=== PATIENT | female | born 1990 | race Caucasian/White ===

== ENCOUNTER 2016-10-28 14:29 | Emergency (ER) | payer MEDICAID ==
[2016-10-28] MEDS ORDERED: Cyclobenzaprine 10 MG Tab PO ONE (15:18)
[2016-10-28] MEDS ORDERED: Ibuprofen 600 MG Tab PO ONE (15:19)
--- NOTE | 2016-10-28 15:20 | EDM.PDOC ---
ED UPPER BACK/NECK PAIN/INJURY - General Chief Complaint: Back Pain or Injury Stated Complaint: BACK PAIN Time Seen by Provider: 10/28/16 15:18 Source of Information: Reports: Patient - History of Present Illness INITIAL COMMENTS - FREE TEXT/NARRATIVE: Patient here today with back pain that started today after lifting her 18month old child. She states she heard a "pop" and had immediate left lower back pain. Denies loss of bowel/bladder function. Some pain down the back of her left leg. - Related Data Allergies/ADRs: Allergies Allergy/AdvReac Type Severity Reaction Status Date / Time No Known Allergies Allergy Verified 10/28/16 14:48 Home Meds: Home Meds Albuterol [IJD: Albuterol HFA] 1 inh INH ASDIRECTED PRN 10/28/16 [History] Cyclobenzaprine [Flexeril] 5 mg PO BID PRN #30 tablet 10/28/16 [Rx] Naproxen [Naprosyn] 500 mg PO BID #30 tablet 10/28/16 [Rx] Past Medical History Respiratory History: Reports: Asthma - Past Surgical History HEENT Surgical History: Reports: Oral surgery Social & Family History - Tobacco Use Smoking Status *Q: Never Smoker Second Hand Smoke Exposure: Yes - Caffeine Use Caffeine Use: Reports: Soda - Recreational Drug Use Recreational Drug Use: No Drug Use in Last 12 Months: No Recreational Drug Type: Reports: Cocaine, Heroin, Methamphetamine Recreational Drug Last Use: quit age 16 ED ROS GENERAL - Review of Systems Review Of Systems: See Below Constitutional: Reports: no symptoms Respiratory: Reports: No Symptoms Cardiovascular: Reports: No symptoms Musculoskeletal: Reports: back pain, leg pain Skin: Reports: no symptoms Neurological: Reports: Numbness, Tingling (left leg) ED EXAM, UPPER BACK/NECK PAIN - Physical Exam Exam: See Below Exam Limited By: No limitations General Appearance: alert, WD/WN, mild distress Cardiovascular/Respiratory: regular rate, rhythm, normal breath sounds Rectal (Female) Exam: Tenderness (Tenderness to left sciatic notch and SIJ. Bilateral lumbar paraspinous muscle tenderness. FROM, significantly increased pain with lumbar extension. SLR radiates to the back on both sides at 30 degrees. ) Neurologic: no motor/sensory deficits, oriented x 3 DTR: 2+: patella (R), patella (L) Psychiatric: normal affect Skin Exam: Normal color, Warm/dry Course - Vital Signs Last Recorded V/S: Last Vital Signs Temp 97.6 F 10/28/16 14:44 Pulse 93 10/28/16 14:44 Resp 16 10/28/16 14:44 BP 121/72 10/28/16 14:44 Pulse Ox 100 10/28/16 14:44 - Orders/Labs/Meds Orders: Active Orders 24 hr Category Date Time Status Lumbar Spine 2 or 3V [CR] Stat Exams 10/28/16 15:18 Taken Meds: Medications Discontinued Medications Generic Name Dose Route Start Last Admin Trade Name Freq PRN Reason Stop Dose Admin Cyclobenzaprine HCl 5 mg 10/28/16 15:18 10/28/16 15:31 Flexeril PO 10/28/16 15:19 5 mg ONETIME ONE Administration Ibuprofen 600 mg 10/28/16 15:19 10/28/16 15:30 Motrin PO 10/28/16 15:20 600 mg ONETIME ONE Administration - Re-Assessments/Exams Free Text/Narrative Re-Assessment/Exam: Acute lumbar back pain. Lspine xray demonstrated no acute abnormality. Patient was given 5mg cyclobenzaprine and 600mg ibuprofen with improvement in pain. I do suspect majority of her pain is due to muscle spasms, though disc herniation could be possible as she does not some LLE pain. Will discharge her home with naproxen BID and PRN cyclobenzaprine and she is to follow-up with myself in the clinic next week. 10/28/16 16:07 Departure - Departure Time of Disposition: 16:09 Disposition: Home, Self-Care 01 Clinical Impression: Lower back pain Qualifiers: Chronicity: acute Back pain laterality: bilateral Sciatica presence: with sciatica Sciatica laterality: sciatica of left side Qualified Code(s): M54.42 - Lumbago with sciatica, left side Prescriptions: Cyclobenzaprine [Flexeril] 5 mg PO BID PRN #30 tablet PRN Reason: Muscle Spasm Naproxen [Naprosyn] 500 mg PO BID #30 tablet Instructions: Muscle Strain, [id number], Back Pain, Adult, [id number] Referrals: PCP,None [Primary Care Provider] - Forms: ED Department Discharge Additional Instructions: Rest, activity as tolerated. Ice 15 minutes ever 2-3 hours as needed. Naproxen (anti-inflammatory) 2x daily for 1 week, then 2x daily as needed. Cyclobenzaprine (muscle relaxant) up to 2x daily if needed. Follow-up with myself in the clinic next week, call [phone] to schedule. - My Orders Last 24 Hours: My Active Orders 10/28/16 15:18 Lumbar Spine 2 or 3V [CR] Stat - Assessment/Plan Last 24 Hours: My Active Orders 10/28/16 15:18 Lumbar Spine 2 or 3V [CR] Stat
[2016-10-28 16:27] VITALS: BP 114/69
--- NOTE | 2016-10-29 09:26 | CR ---
Lumbar spine: AP, lateral and coned-down lateral views centered to the lumbosacral junction were obtained. Vertebral body heights and disc spaces are preserved. Pedicles as well as transverse and spinous processes are intact. No subluxation or fracture is seen. Sacroiliac joints are within normal limits. Impression: 1. No abnormality is seen on three-view lumbar spine study. Diagnostic code #1
== END 2016-10-28 16:21 | disposition home or self-care (01) ==
LOC: JD.ED 14:29
DX: M54.42 Lumbago with sciatica, left side (principal); Z79.899 Other long term (current) drug therapy; Z98.890 Other specified postprocedural states
CPT/HCPCS: 72100; 99283; A9270

== ENCOUNTER 2017-01-12 23:31 | Emergency (ER) | payer MEDICAID ==
[2017-01-12 23:40] VITALS: BP 112/77
--- NOTE | 2017-01-13 00:46 | EDM.PDOC ---
ED HPI GENERAL MEDICAL PROBLEM - General Chief Complaint: Upper Extremity Injury/Pain Stated Complaint: [facility] Time Seen by Provider: 01/13/17 00:45 - History of Present Illness INITIAL COMMENTS - FREE TEXT/NARRATIVE: 26 year old female presents to emergency room with left shoulder pain. This is been going on for a couple weeks now progressively getting worse. The chiropractor informed her that she had a slipped rib and that perhaps her shoulder has popped out of joint. Earlier today the patient was pulling on a bag of ice and this aggravated it. The patient denies any numbness or tingling down her arm. She has intermittent rest bone discomfort if she moves her shoulder wrong. She has tried a leftover pain pills and muscle relaxant about 4 hours ago and this did not seem to help much. Left Shoulder Pain Score (Numeric/FACES): 7 - Related Data Allergies Allergy/AdvReac Type Severity Reaction Status Date / Time No Known Allergies Allergy Verified 01/12/17 23:41 Home Meds: Home Meds Albuterol [IJD: Albuterol HFA] 1 inh INH ASDIRECTED PRN 10/28/16 [History] Cyclobenzaprine [Flexeril] 5 mg PO BID PRN #30 tablet 10/28/16 [Rx] Naproxen [Naprosyn] 500 mg PO BID #30 tablet 10/28/16 [Rx] Naproxen [Naprosyn] 500 mg PO Q12HR #30 tablet 01/13/17 [Rx] Past Medical History Respiratory History: Reports: Asthma Musculoskeletal History: Reports: Other (See Below) Other Musculoskeletal History: "slipped disk" Neurological History: Reports: Concussion - Past Surgical History HEENT Surgical History: Reports: Oral Surgery Social & Family History - Family History Family Medical History: Noncontributory - Tobacco Use Smoking Status *Q: Never Smoker Second Hand Smoke Exposure: Yes - Caffeine Use Caffeine Use: Reports: Soda - Recreational Drug Use Recreational Drug Use: No Drug Use in Last 12 Months: No Recreational Drug Type: Reports: Cocaine, Heroin, Methamphetamine Recreational Drug Last Use: quit age 16 Review of Systems - Review of Systems Review Of Systems: See Below Constitutional: Reports: No Symptoms Respiratory: Reports: No Symptoms Cardiovascular: Reports: No Symptoms GI/Abdominal: Reports: No Symptoms Genitourinary: Reports: No Symptoms, Other (She denies any chance of being at this point) ED EXAM, GENERAL - Physical Exam Exam: See Below Exam Limited By: No Limitations General Appearance: Alert, No Apparent Distress Respiratory/Chest: No Respiratory Distress, Lungs Clear, Normal Breath Sounds Cardiovascular: Regular Rate, Rhythm, No Edema, No Murmur Extremities: Other (Patient has fairly good range of motion of her left shoulder except when she's reaching up and she has some tightness. Palpation between the neck and the shoulder reveals some tenderness and some tight muscles. Neurovascular status of the arm is normal she has no tenderness in the forearm hand or wrist no significant discomfort over the humerus she has tenderness to palpation around the shoulder. The clavicle is not tender. She does not have any appreciable chest wall discomfort.) Course - Vital Signs Last Recorded V/S: Last Vital Signs Temp 37.6 C 01/12/17 23:35 Pulse 91 01/12/17 23:35 Resp 16 01/12/17 23:35 BP 112/77 01/12/17 23:35 Pulse Ox 100 01/12/17 23:35 - Orders/Labs/Meds Orders: Active Orders 24 hr Category Date Time Status Shoulder Comp Lt [CR] Stat Exams 01/13/17 01:01 Taken - Re-Assessments/Exams Free Text/Narrative Re-Assessment/Exam: 01/13/17 02:45 X-ray of her left shoulder is negative for acute changes. Departure - Departure Time of Disposition: 02:45 Disposition: Home, Self-Care 01 Clinical Impression: Left shoulder pain - Discharge Information Prescriptions: Naproxen [Naprosyn] 500 mg PO Q12HR #30 tablet Forms: ED Department Discharge Additional Instructions: Return to the emergency room with any questions or problems. Follow up with her regular provider on Sunday or for a recheck - My Orders Last 24 Hours: My Active Orders 01/13/17 01:01 Shoulder Comp Lt [CR] Stat - Assessment/Plan Last 24 Hours: My Active Orders 01/13/17 01:01 Shoulder Comp Lt [CR] Stat
--- NOTE | 2017-01-15 14:38 | CR ---
Left shoulder: Three views of the left shoulder were obtained. Comparison: No previous study. Glenohumeral joint and acromioclavicular joint appear unremarkable. No fracture or other bony abnormality is seen. Impression: 1. No abnormality is identified on three-view left shoulder study. Diagnostic code #1
== END 2017-01-13 03:03 | disposition home or self-care (01) ==
LOC: JD.ED 23:31
DX: M25.512 Pain in left shoulder (principal); J45.909 Unspecified asthma, uncomplicated; Z98.890 Other specified postprocedural states
CPT/HCPCS: 73030-26-LT; 73030-LT; 99283; 99284

== ENCOUNTER 2017-04-08 12:23 | Emergency (ER) | payer MEDICAID ==
[2017-04-08] MEDS ORDERED: Alum Hydrox/Mag Hydrox/Simeth 30 ML, Lidocaine 2% 15 ML PO ONE ×2 (12:54)
--- NOTE | 2017-04-08 13:00 | EDM.PDOC ---
ED HPI GENERAL MEDICAL PROBLEM - General Chief Complaint: Abdominal Pain Stated Complaint: ABDOMINAL PAIN Time Seen by Provider: 04/08/17 12:38 - History of Present Illness INITIAL COMMENTS - FREE TEXT/NARRATIVE: 26-year-old female comes emergency room with abdominal pain. This abdominal pain started yesterday as described midepigastric made worse by eating or drinking. Patient did not have much of an appetite yesterday was having this discomfort she retried nurse down crackers and this actually made it worse as well as trying to sip fluids. The pain is described as mostly epigastric. She has not had any vomiting has had some nausea with this. Patient denies any fevers or chills no diarrhea no constipation no black or tarry stools. The patient is on control pills but she thinks maybe she missed a dose. lower epigastric Pain Score (Numeric/FACES): 1 - Related Data Allergies Allergy/AdvReac Type Severity Reaction Status Date / Time No Known Allergies Allergy Verified 04/08/17 12:41 Home Meds: Home Meds Albuterol [IJD: Albuterol HFA] 1 inh INH ASDIRECTED PRN 10/28/16 [History] Control Pills 1 tab PO ASDIRECTED 04/08/17 [History] Lansoprazole [Prevacid] 30 mg PO Q24H #30 capsule. 04/08/17 [Rx] Sucralfate [Carafate] 1 gm PO QIDACANDBED #28 tablet 04/08/17 [Rx] Past Medical History - Past Health History Medical/Surgical History: Denies Medical/Surgical History Respiratory History: Reports: Asthma Musculoskeletal History: Reports: Back Pain, Chronic, Other (See Below) Other Musculoskeletal History: "slipped disk" Neurological History: Reports: Concussion - Past Surgical History HEENT Surgical History: Reports: Oral Surgery Social & Family History - Family History Family Medical History: Noncontributory - Tobacco Use Smoking Status *Q: Never Smoker Second Hand Smoke Exposure: Yes - Caffeine Use Caffeine Use: Reports: Energy Drinks - Recreational Drug Use Recreational Drug Use: No Drug Use in Last 12 Months: No Recreational Drug Type: Reports: Cocaine, Heroin, Methamphetamine Recreational Drug Last Use: quit age 16 ED ROS GENERAL - Review of Systems Review Of Systems: See Below Constitutional: Reports: No Symptoms HEENT: Reports: No Symptoms Respiratory: Reports: No Symptoms Cardiovascular: Reports: No Symptoms GI/Abdominal: Reports: Abdominal Pain, Decreased Appetite, Nausea. Denies: Black Stool, Bloody Stool, Constipation, Diarrhea, Vomiting : Reports: No Symptoms Neurological: Reports: No Symptoms ED EXAM, GI/ABD - Physical Exam Exam: See Below General Appearance: Alert, No Apparent Distress Head: Atraumatic, Normocephalic Neck: Normal Inspection, Supple, Non-Tender, Full Range of Motion. No: Lymphadenopathy (L), Lymphadenopathy (R) Respiratory/Chest: No Respiratory Distress, Lungs Clear, Normal Breath Sounds Cardiovascular: Regular Rate, Rhythm, No Edema, No Murmur GI/Abdominal Exam: Normal Bowel Sounds, Soft, Other (Patient has significant epigastric and left upper quadrant discomfort with palpation vague discomfort noted in the suprapubic area no rigidity rebound or guarding noted) Back Exam: Normal Inspection. No: CVA Tenderness (L), CVA Tenderness (R) Extremities: Normal Inspection, No Pedal Edema Neurological: Alert, Oriented, Normal Cognition Course - Vital Signs Last Recorded V/S: Last Vital Signs Temp 36.8 C 04/08/17 12:37 Pulse 74 04/08/17 12:37 Resp 18 04/08/17 12:37 BP 107/74 04/08/17 12:37 Pulse Ox 100 04/08/17 12:37 - Orders/Labs/Meds Labs: Laboratory Tests 04/08/17 04/08/17 04/08/17 Range/Units 13:20 13:20 13:30 WBC 5.50 (3.98-10.04) K/mm3 RBC 4.58 (3.98-5.22) M/mm3 Hgb 13.2 (11.2-15.7) gm/L Hct 39.2 (34.1-44.9) % MCV 85.6 (79.4-94.8) fl MCH 28.8 (25.6-32.2) pg MCHC 33.7 (32.2-35.5) g/dl RDW Std Deviation 39.4 (36.4-46.3) fL Plt Count 176 L (182-369) K/mm3 MPV 11.8 (9.4-12.3) fl Neutrophils % (Manual) 57 (40-60) % Band Neutrophils % 0 (0-10) % Lymphocytes % (Manual) 40 (20-40) % Atypical Lymphs % 0 % Monocytes % (Manual) 2 (2-10) % Eosinophils % (Manual) 1 (0.7-5.8) % Basophils % (Manual) 0 L (0.1-1.2) Platelet Estimate Adequate RBC Morph Comment Normal Sodium (136-145) mEq/L Potassium (3.5-5.1) mEq/L Chloride (98-107) mEq/L Carbon Dioxide (21-32) mEq/L Anion Gap (5-15) BUN (7-18) mg/dL Creatinine (0.55-1.02) mg/dL Est Cr Clr Drug Dosing Estimated GFR (MDRD) (>60) mL/min BUN/Creatinine Ratio (14-18) Glucose (74-106) mg/dL Calcium (8.5-10.1) mg/dL Total Bilirubin (0.2-1.0) mg/dL AST (15-37) U/L ALT (14-59) U/L Alkaline Phosphatase (46-116) U/L Total Protein (6.4-8.2) g/dl Albumin (3.4-5.0) g/dl Globulin gm/dL Albumin/Globulin Ratio (1-2) Lipase (73-393) U/L Urine Color Yellow (Yellow) Urine Appearance Clear (Clear) Urine pH 6.0 (5.0-8.0) Ur Specific [place] 1.020 (1.005-1.030) Urine Protein Trace H (Negative) Urine Glucose (UA) Negative (Negative) Urine Ketones Negative (Negative) Urine Occult Blood Negative (Negative) Urine Nitrite Negative (Negative) Urine Bilirubin Negative (Negative) Urine Urobilinogen 2.0 H (0.2-1.0) Ur Leukocyte Esterase 1+ H (Negative) Urine RBC Not seen (0-5) /hpf Urine WBC 5-10 H (0-5) /hpf Ur Epithelial Cells 0-5 (0-5) /hpf Urine Bacteria Few (FEW) /hpf Urine Mucus Many H (FEW) /hpf Urine HCG, Qual Negative (NEGATIVE) 04/08/17 Range/Units 13:30 WBC (3.98-10.04) K/mm3 RBC (3.98-5.22) M/mm3 Hgb (11.2-15.7) gm/L Hct (34.1-44.9) % MCV (79.4-94.8) fl MCH (25.6-32.2) pg MCHC (32.2-35.5) g/dl RDW Std Deviation (36.4-46.3) fL Plt Count (182-369) K/mm3 MPV (9.4-12.3) fl Neutrophils % (Manual) (40-60) % Band Neutrophils % (0-10) % Lymphocytes % (Manual) (20-40) % Atypical Lymphs % % Monocytes % (Manual) (2-10) % Eosinophils % (Manual) (0.7-5.8) % Basophils % (Manual) (0.1-1.2) Platelet Estimate RBC Morph Comment Sodium 141 (136-145) mEq/L Potassium 3.7 (3.5-5.1) mEq/L Chloride 106 (98-107) mEq/L Carbon Dioxide 26 (21-32) mEq/L Anion Gap 12.7 (5-15) BUN 8 (7-18) mg/dL Creatinine 0.8 (0.55-1.02) mg/dL Est Cr Clr Drug Dosing TNP Estimated GFR (MDRD) > 60 (>60) mL/min BUN/Creatinine Ratio 10.0 L (14-18) Glucose 93 (74-106) mg/dL Calcium 8.8 (8.5-10.1) mg/dL Total Bilirubin 0.2 (0.2-1.0) mg/dL AST 9 L (15-37) U/L ALT 16 (14-59) U/L Alkaline Phosphatase 49 (46-116) U/L Total Protein 7.2 (6.4-8.2) g/dl Albumin 3.7 (3.4-5.0) g/dl Globulin 3.5 gm/dL Albumin/Globulin Ratio 1.1 (1-2) Lipase 105 (73-393) U/L Urine Color (Yellow) Urine Appearance (Clear) Urine pH (5.0-8.0) Ur Specific [place] (1.005-1.030) Urine Protein (Negative) Urine Glucose (UA) (Negative) Urine Ketones (Negative) Urine Occult Blood (Negative) Urine Nitrite (Negative) Urine Bilirubin (Negative) Urine Urobilinogen (0.2-1.0) Ur Leukocyte Esterase (Negative) Urine RBC (0-5) /hpf Urine WBC (0-5) /hpf Ur Epithelial Cells (0-5) /hpf Urine Bacteria (FEW) /hpf Urine Mucus (FEW) /hpf Urine HCG, Qual (NEGATIVE) Meds: Medications Discontinued Medications Generic Name Dose Route Start Last Admin Trade Name Freq PRN Reason Stop Dose Admin Al Hydroxide/Mg Hydroxide 30 0 ml 04/08/17 12:54 04/08/17 13:33 ml/ Lidocaine HCl 15 ml PO 04/08/17 12:55 45 ml ONETIME ONE Administration Sucralfate 1 gm 04/08/17 14:08 Carafate PO 04/08/17 14:09 ONETIME ONE - Re-Assessments/Exams Free Text/Narrative Re-Assessment/Exam: 04/08/17 14:09 Patient received a GI cocktail became pain-free labs are nondiagnostic urinalysis looks contaminated however may suggest an early UTI the patient is not and absolutely asymptomatic will not do anything with this at this point. Patient will .be started on a week's worth of Carafate will start PPI therapy have her follow-up in the clinic later this week Departure - Departure Time of Disposition: 14:11 Disposition: Home, Self-Care 01 Clinical Impression: Dyspepsia - Discharge Information Prescriptions: Lansoprazole [Prevacid] 30 mg PO Q24H #30 capsule. Sucralfate [Carafate] 1 gm PO QIDACANDBED #28 tablet Referrals: PCP,None [Primary Care Provider] - Forms: ED Department Discharge Additional Instructions: Return to the emergency room with any questions problems worsening symptoms. You have been started on 2 medications first one is Prevacid he take this once a day take it 60 minutes before your morning meal. The second medication is Carafate take these tablets before breakfast lunch and supper and at bedtime. Take your other medications at least an hour before or 2 hours after taking this , you'll take this medication for a week. Follow-up in the Hospital clinic later this week for recheck. [phone]
[2017-04-08] MEDS ORDERED: Sucralfate Suspension 1 GM/10 ML Cup PO ONE (14:08)
[2017-04-08 19:29] VITALS: BP 108/77
== END 2017-04-08 14:37 | disposition home or self-care (01) ==
LOC: JD.ED 12:23
DX: R10.13 Epigastric pain (principal); J45.909 Unspecified asthma, uncomplicated
CPT/HCPCS: 36415; 80053; 81001; 81025; 83690; 85025; 99284; A9270; 99283

== ENCOUNTER 2017-04-10 03:19 | Emergency (ER) | payer MEDICAID ==
[2017-04-10 03:33] VITALS: BP 121/82
--- NOTE | 2017-04-10 03:48 | EDM.PDOC ---
ED HPI GENERAL MEDICAL PROBLEM - General Chief Complaint: Back Pain or Injury Stated Complaint: BACK/CHEST/RIB/PAIN Time Seen by Provider: 04/10/17 03:41 - History of Present Illness INITIAL COMMENTS - FREE TEXT/NARRATIVE: 26-year-old female returns the emergency room with right upper quadrant and flank discomfort. Patient was recently seen here thought to have dyspepsia she is taking her PPI and Carafate the pain she is having now is different and more to the right side. The patient was doing well until she returned to work this evening around 11:00 she developed some discomfort and nausea and vomiting. She works in the [employer] industry. Patient denies any fevers or chills at the one episode of vomiting. Right Chest Pain Score (Numeric/FACES): 8 - Related Data Allergies Allergy/AdvReac Type Severity Reaction Status Date / Time No Known Allergies Allergy Verified 04/10/17 03:31 Home Meds: Home Meds Albuterol [IJD: Albuterol HFA] 1 inh INH ASDIRECTED PRN 10/28/16 [History] Control Pills 1 tab PO ASDIRECTED 04/08/17 [History] Lansoprazole [Prevacid] 30 mg PO Q24H #30 capsule.dr 04/08/17 [Rx] Sucralfate [Carafate] 1 gm PO QIDACANDBED #28 tablet 04/08/17 [Rx] Hydrocodone/Acetaminophen [[place] 5-325 Tablet] 1 each PO Q6H PRN #10 tablet 07/15 [Rx] Ondansetron [Zofran ODT] 4 mg PO Q6H PRN #10 tab.dis 04/10/17 [Rx] Past Medical History - Past Health History Medical/Surgical History: Denies Medical/Surgical History HEENT History: Reports: Impaired Vision Other HEENT History: Wears glasses Respiratory History: Reports: Asthma Gastrointestinal History: Reports: Other (See Below) Other Gastrointestinal History: Dyspepsia [employer]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 [employer] History: Reports: Musculoskeletal History: Reports: Back Pain, Chronic, Other (See Below) Other Musculoskeletal History: "slipped disk" Neurological History: Reports: Concussion - Past Surgical History HEENT Surgical History: Reports: Oral Surgery Social & Family History - Family History Family Medical History: Noncontributory - Tobacco Use Smoking Status *Q: Never Smoker Second Hand Smoke Exposure: Yes - Caffeine Use Caffeine Use: Reports: Energy Drinks - Recreational Drug Use Recreational Drug Use: No Drug Use in Last 12 Months: No Recreational Drug Type: Reports: Cocaine, Heroin, Methamphetamine Recreational Drug Last Use: quit age 16 ED ROS GENERAL - Review of Systems Review Of Systems: See Below Constitutional: Reports: No Symptoms HEENT: Reports: No Symptoms, Vertigo Cardiovascular: Reports: No Symptoms GI/Abdominal: Reports: Abdominal Pain, Nausea, Vomiting. Denies: Constipation, Diarrhea : Reports: No Symptoms Neurological: Reports: No Symptoms ED EXAM, GENERAL - Physical Exam Exam: See Below Exam Limited By: No Limitations General Appearance: Alert, No Apparent Distress Head: Atraumatic, Normocephalic Neck: Normal Inspection, Supple, Non-Tender, Full Range of Motion Respiratory/Chest: No Respiratory Distress, Lungs Clear, Normal Breath Sounds Cardiovascular: Regular Rate, Rhythm, No Edema, No Murmur GI/Abdominal: Normal Bowel Sounds, Soft, Other (She has significant right upper quadrant discomfort with palpation no other palpatory discomfort noted. No rigidity or rebound or guarding noted) Back Exam: Normal Inspection. No: CVA Tenderness (L), CVA Tenderness (R) Neurological: Alert, Oriented, Normal Cognition Course - Vital Signs Last Recorded V/S: Last Vital Signs Temp 37.2 C 04/10/17 03:31 Pulse 74 04/10/17 03:31 Resp 22 H 04/10/17 03:31 BP 121/82 04/10/17 03:31 Pulse Ox 100 04/10/17 03:31 - Orders/Labs/Meds Labs: Laboratory Tests 04/10/17 04/10/17 04/10/17 Range/Units 04:02 04:05 04:05 WBC 8.14 (3.98-10.04) K/mm3 RBC 4.25 (3.98-5.22) M/mm3 Hgb 12.4 (11.2-15.7) gm/L Hct 36.2 (34.1-44.9) % MCV 85.2 (79.4-94.8) fl MCH 29.2 (25.6-32.2) pg MCHC 34.3 (32.2-35.5) g/dl RDW Std Deviation 38.8 (36.4-46.3) fL Plt Count 154 L (182-369) K/mm3 MPV 12.1 (9.4-12.3) fl Neutrophils % (Manual) 67 H (40-60) % Band Neutrophils % 0 (0-10) % Lymphocytes % (Manual) 26 (20-40) % Atypical Lymphs % 0 % Monocytes % (Manual) 6 (2-10) % Eosinophils % (Manual) 1 (0.7-5.8) % Basophils % (Manual) 0 L (0.1-1.2) Platelet Estimate Adequate RBC Morph Comment Normal Sodium 140 (136-145) mEq/L Potassium 3.4 L (3.5-5.1) mEq/L Chloride 106 (98-107) mEq/L Carbon Dioxide 26 (21-32) mEq/L Anion Gap 11.4 (5-15) BUN 11 (7-18) mg/dL Creatinine 0.9 (0.55-1.02) mg/dL Est Cr Clr Drug Dosing 85.84 mL/min Estimated GFR (MDRD) > 60 (>60) mL/min BUN/Creatinine Ratio 12.2 L (14-18) Glucose 103 (74-106) mg/dL Calcium 8.9 (8.5-10.1) mg/dL Total Bilirubin 0.4 (0.2-1.0) mg/dL AST 14 L (15-37) U/L ALT 23 (14-59) U/L Alkaline Phosphatase 49 (46-116) U/L Total Protein 7.2 (6.4-8.2) g/dl Albumin 3.9 (3.4-5.0) g/dl Globulin 3.3 gm/dL Albumin/Globulin Ratio 1.2 (1-2) Lipase 97 (73-393) U/L Urine Color Yellow (Yellow) Urine Appearance Clear (Clear) Urine pH 6.0 (5.0-8.0) Ur Specific [place] > or = 1.030 (1.005-1.030) Urine Protein 2+ H (Negative) Urine Glucose (UA) Negative (Negative) Urine Ketones Trace H (Negative) Urine Occult Blood Negative (Negative) Urine Nitrite Negative (Negative) Urine Bilirubin 1+ H (Negative) Urine Urobilinogen 1.0 (0.2-1.0) Ur Leukocyte Esterase Trace H (Negative) Urine RBC 0-5 (0-5) /hpf Urine WBC 5-10 H (0-5) /hpf Ur Epithelial Cells 5-10 H (0-5) /hpf Urine Bacteria Few (FEW) /hpf Hyaline Casts 0-5 (0-5) /lpf Urine Mucus Moderate H (FEW) /hpf - Re-Assessments/Exams Free Text/Narrative Re-Assessment/Exam: 04/10/17 04:46 Laboratory evaluation nondiagnostic lipase is not elevated, is not elevated bilirubin is not elevated however she does have urobilinogen in her urine her urine does look contaminated again otherwise not suggestive of infectious process hCG not checked as she had one done 2 days ago. Discussed imaging studies such as CAT scan to be done now or getting a gallbladder ultrasound as an outpatient she would prefer to get a gallbladder ultrasound as an outpatient. Departure - Departure Time of Disposition: 04:49 Disposition: Home, Self-Care 01 Clinical Impression: Upper abdominal pain - Discharge Information Prescriptions: Hydrocodone/Acetaminophen [[place] 5-325 Tablet] 1 each PO Q6H PRN #10 tablet PRN Reason: Abdominal Pain Ondansetron [Zofran ODT] 4 mg PO Q6H PRN #10 tab.dis PRN Reason: Nausea/Vomiting Referrals: PCP,None [Primary Care Provider] - Forms: ED Department Discharge Additional Instructions: Return to the emergency room with any questions problems worsening symptoms. Follow-up in the Hospital clinic for the results the gallbladder ultrasound and to see how things are going. [phone] You have been given a prescription for Zofran this for nausea and vomiting he is 1 sublingually or under your tongue every 6 hours as needed for nausea and vomiting. Also you have been started on [place] this is a pain medication take 1 every 6 hours as needed for abdominal pain. Allow 12 hours after using this medication before driving or returning to work. This medication can cause constipation supervisor opening and picking some [id number] stool softeners such as Colace 100 mg twice daily while using this medication.
[2017-04-10] MEDS ORDERED: Acetaminophen/HYDROcodone 325-5 MG Tab PO ONE (04:47)
[2017-04-10] MEDS ORDERED: Ondansetron 4 MG Tab.DIS PO ONE (04:47)
== END 2017-04-10 05:00 | disposition home or self-care (01) ==
LOC: JD.ED 03:19
DX: R10.11 Right upper quadrant pain (principal); J45.909 Unspecified asthma, uncomplicated; Z98.818 Other dental procedure status
CPT/HCPCS: 36415; 80053; 81001; 83690; 85025; 99285; A9270; 99283

== ENCOUNTER 2017-05-30 20:25 | Emergency (ER) | payer MEDICAID ==
[2017-05-30 20:45] VITALS: BP 128/80
[2017-05-30] MEDS ORDERED: Lidocaine 1% with EPINEPHrine 1:100,000 20 ML MDV INJECT ONE (21:39)
[2017-05-30] MEDS ORDERED: Lidocaine/EPINEPHrine/Tetracaine Soln 1 ML TOP STA (21:39)
[2017-05-30] MEDS ORDERED: Bupivacaine 0.5% 10 ML SDV INJECT ONE (21:40)
--- NOTE | 2017-05-30 22:14 | EDM.PDOCBH ---
ED HPI GENERAL MEDICAL PROBLEM - General Chief Complaint: Behavioral/Psych Stated Complaint: [facility] AMB Time Seen by Provider: 05/30/17 21:16 Source of Information: Reports: Patient, RN, RN Notes Reviewed History Limitations: Reports: No Limitations - History of Present Illness INITIAL COMMENTS - FREE TEXT/NARRATIVE: The patient states that she works at [employer], but recently had her hours reduced, while her does not work. She and her had an argument this evening, and the patient's left. The patient ran after him, trying to stop him, but when he did not stop, she told him to find someplace else to spend the night. She then returned to their apartment and locked the door. Some time later, the patient's returned and attempted to get in. The patient called the police, and the patient's was subsequently arrested for resisting arrest. The patient then slashed her left wrist with a kitchen knife. She states that she then called EMS because the wound was bleeding more than she had expected. When asked why she cut her wrist, she replied "I don't know", and when asked what she thought would happen as a result of cutting her wrist she replied "Can' t tell you". She acknowledges that she has cut her wrists, arms, and legs in the past, as a way to ease emotional pain. When asked if that is what she did tonight she replied "I suppose". When asked if she may have briefly been considering suicide when she slashed her wrist, she replied "I don't know". The patient states that she was not injured by her kenny, or previously. The patient states that she has been psychiatrically hospitalized 4 times in the past: She was hospitalized for 6-8 months for cutting when 17 years old. She was hospitalized for [address] her on anti-depression medications when 19 years old, then for another 3 days while 19 years old, again to place her on antidepression medications. She was then psychiatrically hospitalized for 3 days when 23 years old following an overdose including Tylenol No. 3 and psychiatric medications. She states that she has a history of PTSD and depression, but that she was taken off psychiatric medications by her Psychiatrist 2 years ago, and has not been on any since. It is noted that the patient reports having 2 children, but that neither are currently living in her household. The patient does not have a PCP. Left Wrist Pain Score (Numeric/FACES): 2 - Related Data Allergies Allergy/AdvReac Type Severity Reaction Status Date / Time No Known Allergies Allergy Verified 05/30/17 20:45 Home Meds: Home Meds . [No Known Home Meds] 05/30/17 [History] Past Medical History HEENT History: Reports: Impaired Vision Other HEENT History: Wears glasses Gastrointestinal History: Reports: GERD, Hiatal Hernia [employer] WORKER History: Reports: Psychiatric History: Reports: Depression, PTSD - Past Surgical History HEENT Surgical History: Reports: Oral Surgery ([place] teeth extraction) Social & Family History - Family History Family Medical History: Noncontributory - Tobacco Use Smoking Status *Q: Never Smoker Second Hand Smoke Exposure: Yes Source of Second Hand Smoke Exposure: - Caffeine Use Caffeine Use: Reports: Energy Drinks - Alcohol Use Alcohol Use History: No - Recreational Drug Use Recreational Drug Use: Yes Drug Use in Last 12 Months: No Recreational Drug Type: Reports: Cocaine, Heroin, Methamphetamine Recreational Drug Last Use: quit age 16 - Living Situation & Occupation Living situation: Reports: , with Spouse Occupation: Employed ([employer] ED ROS GENERAL - Review of Systems Review Of Systems: See Below Constitutional: Reports: No Symptoms HEENT: Reports: No Symptoms Respiratory: Reports: No Symptoms Cardiovascular: Reports: No Symptoms Endocrine: Reports: No Symptoms GI/Abdominal: Reports: No Symptoms : Reports: No Symptoms Musculoskeletal: Reports: No Symptoms Skin: Reports: No Symptoms Neurological: Reports: No Symptoms Psychiatric: Reports: No Symptoms Hematologic/Lymphatic: Reports: No Symptoms Immunologic: Reports: No Symptoms ED EXAM, BEHAVIORAL HEALTH - Physical Exam Exam: See Below Exam Limited By: No Limitations General Appearance: Alert, WD/WN, No Apparent Distress Eye Exam: Bilateral Eye: Normal Inspection Ears: Normal External Exam, Hearing Grossly Normal Nose: Normal Inspection, No Blood Throat/Mouth: Normal Inspection, Normal Lips, Normal Voice, No Airway Compromise Head: Atraumatic, Normocephalic Neck: Normal Inspection, Full Range of Motion Respiratory/Chest: No Respiratory Distress, Lungs Clear, Normal Breath Sounds, No Accessory Muscle Use Cardiovascular: Normal Peripheral Pulses, Regular Rate, Rhythm, No Gallop, No JVD, No Murmur, No Rub GI/Abdominal: Normal Bowel Sounds, Soft, Non-Tender, No Organomegaly, No Distention, No Abnormal Bruit, No Mass (Female) Exam: Deferred Rectal (Female) Exam: Deferred Back Exam: Normal Inspection, Full Range of Motion, NT Extremities: Normal Range of Motion, No Pedal Edema, Normal Capillary Refill, Other (Approximately 4.0 cm linear wound to the volar aspect of the patient's left distal forearm - 2 cm are a scratch, the other 2 cm are a subcutaneous laceration that will require suturing to close. No vascular or tendinous injury. Neurovascular status of the left upper extremity is intact.) Neurological: Alert, Normal Cognition, No Motor/Sensory Deficits, Oriented x 3 Psychiatric: Tearful Skin Exam: Warm, Dry, Intact, Normal color, No rash ED LACERATION PROCEDURES - Laceration/Wound Repair Left Arm Lac/wound length in cm: 2.0 Appearance: Subcutaneous, Linear, Clean Distal NVT: Neuro & Vascular Intact, No Tendon Injury Anesthetic Type: Local Local Anesthesia - Lidocaine (Xylocaine): 1% Plain Local Anesthesia - Bupivicaine (Marcaine): 0.5% Plain Local Anesthetic Volume: 2cc Skin Prep: Providone-Iodine (Betadine) Exploration/Debridement/Repair: Wound Explored, In a Bloodless Field, Explored to Base, No Foreign Material Found, Wound Margins Revised Closed with: Sutures Suture Size: 3-0 # of Sutures: 5 Suture Type: Nylon, Running Sterile Dressing Applied: None Tetanus Status Addressed: Yes Complications: No EKG INTERPRETATION EKG Date: 05/30/17 Time: 21:49 Rhythm: NSR Rate (Beats/Min): 89 Bland: Normal P-Wave: Present QRS: Normal ST-T: Normal QT: Normal Comparison: NA - No Prior EKG COURSE, BEHAVIORAL HEALTH COMP - Course Vital Signs: Last Vital Signs Temp 36.9 C 05/30/17 20:36 Pulse 110 H 05/30/17 20:36 Resp 18 05/30/17 20:36 BP 128/80 05/30/17 20:36 Pulse Ox 100 05/30/17 20:36 Orders, Labs, Meds: Active Orders 24 hr Category Date Time Status EKG Documentation Completion [RC] STAT Care 05/30/17 21:38 Active Laboratory Tests 05/30/17 05/30/17 05/30/17 Range/Units 21:50 21:50 21:50 WBC 11.70 H (3.98-10.04) K/mm3 RBC 4.70 (3.98-5.22) M/mm3 Hgb 13.6 (11.2-15.7) gm/L Hct 40.5 (34.1-44.9) % MCV 86.2 (79.4-94.8) fl MCH 28.9 (25.6-32.2) pg MCHC 33.6 (32.2-35.5) g/dl RDW Std Deviation 40.3 (36.4-46.3) fL Plt Count 193 (182-369) K/mm3 MPV 11.4 (9.4-12.3) fl Neutrophils % (Manual) 85 H (40-60) % Band Neutrophils % 0 (0-10) % Lymphocytes % (Manual) 12 L (20-40) % Atypical Lymphs % 0 % Monocytes % (Manual) 2 (2-10) % Eosinophils % (Manual) 1 (0.7-5.8) % Basophils % (Manual) 0 L (0.1-1.2) Platelet Estimate Adequate Plt Morphology Comment Normal RBC Morph Comment Normal Sodium 144 (136-145) mEq/L Potassium 3.8 (3.5-5.1) mEq/L Chloride 107 (98-107) mEq/L Carbon Dioxide 25 (21-32) mEq/L Anion Gap 15.8 H (5-15) BUN 9 (7-18) mg/dL Creatinine 0.8 (0.55-1.02) mg/dL Est Cr Clr Drug Dosing 84.67 mL/min Estimated GFR (MDRD) > 60 (>60) mL/min BUN/Creatinine Ratio 11.3 L (14-18) Glucose 100 (74-106) mg/dL Calcium 9.1 (8.5-10.1) mg/dL Total Bilirubin 0.4 (0.2-1.0) mg/dL AST 14 L (15-37) U/L ALT 14 (14-59) U/L Alkaline Phosphatase 65 (46-116) U/L Total Protein 7.5 (6.4-8.2) g/dl Albumin 4.2 (3.4-5.0) g/dl Globulin 3.3 gm/dL Albumin/Globulin Ratio 1.3 (1-2) TSH 3rd Generation 0.477 (0.358-3.74) uIU/mL Urine HCG, Qual (NEGATIVE) Salicylates 0.9 L (2.8-20) mg/dL Urine Opiates Screen (NEGATIVE) Ur Buprenorphine Scrn (NEGATIVE) Ur Oxycodone Screen (NEGATIVE) Urine Methadone Screen (NEGATIVE) Ur Propoxyphene Screen (NEGATIVE) Acetaminophen 0 L (10-30) ug/mL Ur Barbiturates Screen (NEGATIVE) Ur Tricyclics Screen (NEGATIVE) Ur Phencyclidine Scrn (NEGATIVE) Ur Amphetamine Screen (NEGATIVE) U Methamphetamines Scrn (NEGATIVE) U Benzodiazepines Scrn (NEGATIVE) U Cocaine Metab Screen (NEGATIVE) U Marijuana (THC) Screen (NEGATIVE) Ethyl Alcohol 0.00 (0.00) gm% 05/30/17 05/30/17 Range/Units 22:00 22:00 WBC (3.98-10.04) K/mm3 RBC (3.98-5.22) M/mm3 Hgb (11.2-15.7) gm/L Hct (34.1-44.9) % MCV (79.4-94.8) fl MCH (25.6-32.2) pg MCHC (32.2-35.5) g/dl RDW Std Deviation (36.4-46.3) fL Plt Count (182-369) K/mm3 MPV (9.4-12.3) fl Neutrophils % (Manual) (40-60) % Band Neutrophils % (0-10) % Lymphocytes % (Manual) (20-40) % Atypical Lymphs % % Monocytes % (Manual) (2-10) % Eosinophils % (Manual) (0.7-5.8) % Basophils % (Manual) (0.1-1.2) Platelet Estimate Plt Morphology Comment RBC Morph Comment Sodium (136-145) mEq/L Potassium (3.5-5.1) mEq/L Chloride (98-107) mEq/L Carbon Dioxide (21-32) mEq/L Anion Gap (5-15) BUN (7-18) mg/dL Creatinine (0.55-1.02) mg/dL Est Cr Clr Drug Dosing mL/min Estimated GFR (MDRD) (>60) mL/min BUN/Creatinine Ratio (14-18) Glucose (74-106) mg/dL Calcium (8.5-10.1) mg/dL Total Bilirubin (0.2-1.0) mg/dL AST (15-37) U/L ALT (14-59) U/L Alkaline Phosphatase (46-116) U/L Total Protein (6.4-8.2) g/dl Albumin (3.4-5.0) g/dl Globulin gm/dL Albumin/Globulin Ratio (1-2) TSH 3rd Generation (0.358-3.74) uIU/mL Urine HCG, Qual Negative (NEGATIVE) Salicylates (2.8-20) mg/dL Urine Opiates Screen Negative (NEGATIVE) Ur Buprenorphine Scrn Negative (NEGATIVE) Ur Oxycodone Screen Negative (NEGATIVE) Urine Methadone Screen Negative (NEGATIVE) Ur Propoxyphene Screen Negative (NEGATIVE) Acetaminophen (10-30) ug/mL Ur Barbiturates Screen Negative (NEGATIVE) Ur Tricyclics Screen Negative (NEGATIVE) Ur Phencyclidine Scrn Negative (NEGATIVE) Ur Amphetamine Screen Negative (NEGATIVE) U Methamphetamines Scrn Negative (NEGATIVE) U Benzodiazepines Scrn Negative (NEGATIVE) U Cocaine Metab Screen Negative (NEGATIVE) U Marijuana (THC) Screen Negative (NEGATIVE) Ethyl Alcohol (0.00) gm% Medications Discontinued Medications Generic Name Dose Route Start Last Admin Trade Name Shan PRN Reason Stop Dose Admin Bupivacaine HCl 10 ml 05/30/17 21:40 05/30/17 21:48 Sensorcaine-Mpf 0.5% INJECT 05/30/17 21:41 10 ml ONETIME ONE Administration Lidocaine HCl 10 ml 05/30/17 22:35 05/31/17 01:19 Xylocaine 1% INJECT 05/30/17 22:36 Not Given ONETIME ONE Lidocaine/Epinephrine 20 ml 05/30/17 21:39 05/30/17 23:23 Xylocaine 1% With Epinephrine 1:100,000 INJECT 05/30/17 21:40 Not Given ONETIME ONE Lidocaine/Tetracaine 2 ml 05/30/17 21:39 05/30/17 21:49 Let Soln TOP 05/30/17 21:40 Not Given ONETIME STA Medical Clearance: 05/31/17 01:08 The patient's case was discussed with [facility]. They have 2 psychiatric beds available, however, they are not willing to hold them. They were not going to transfer me to discuss the case with a Psychiatrist unless we could be certain that we had transportation for the patient. We contacted the [facility]'s department, and, unfortunately, they will not have availability for transport until the morning. We will therefore keep the patient here in the ED overnight and attempt to find a psychiatric bed in the morning. 05/31/17 05:10 Notified by the patient's nurse that the patient attempted to leave the ED after asking if she could walk around the ED for some exercise. She was caught by the nurse and brought back to her room. 05/31/17 06:[address] Olivarez, Psychiatrist at [facility], at 06:34 MDT. He accepts the patient for involuntary psychiatric admission. Departure - Departure Time of Disposition: 06:43 Disposition: DC/Tfer to Psych Hosp/Unit 65 Condition: Good Clinical Impression: Suicide attempt, Laceration of left wrist without complication - Discharge Information - My Orders Last 24 Hours: My Active Orders 05/30/17 21:38 EKG Documentation Completion [RC] STAT - Assessment/Plan Last 24 Hours: My Active Orders 05/30/17 21:38 EKG Documentation Completion [RC] STAT
[2017-05-30] MEDS ORDERED: Lidocaine 1% 10 ML MDV INJECT ONE (22:35)
[2017-05-30 22:39] LABS: ACETAMINOPHEN 0 ug/mL (10-30)
== END 2017-05-31 09:20 ==
LOC: JD.ED 20:25 → EEVIPCON 20:25 → JD.ED 05-31 09:20
DX: S61.512A Laceration without foreign body of left wrist, initial encounter (principal); X78.1XXA Intentional self-harm by knife, initial encounter; Z86.59 Personal history of other mental and behavioral disorders
CPT/HCPCS: 12001; 36415; 80053; 80306; 81025; 84443; 85025; 93005; 99285; G0480; 93010

== ENCOUNTER 2017-06-07 17:58 | Emergency (ER) | payer MEDICAID ==
[2017-06-07] MEDS ORDERED: Ketorolac 30 MG/ML SDV IVPUSH ONE (18:04)
[2017-06-07] MEDS ORDERED: Lactated Ringers 1,000 ML IV ONE (18:04)
[2017-06-07] MEDS ORDERED: Ondansetron 4 MG/2 ML SDV IVPUSH ONE (18:04)
[2017-06-07] MEDS ORDERED: HYDROmorphone 0.5 MG/0.5 ML Syringe IVPUSH ONE (18:04)
[2017-06-07] MEDS ORDERED: Sodium Chloride 0.9% 10 ML Syringe FLUSH PRN (18:04)
[2017-06-07 18:06] VITALS: BP 127/78
--- NOTE | 2017-06-07 18:06 | EDM.PDOC ---
ED HPI GENERAL MEDICAL PROBLEM - General Chief Complaint: General Stated Complaint: Chest pain Time Seen by Provider: 06/07/17 18:00 Source of Information: Reports: Patient, EMS, RN Notes Reviewed History Limitations: Reports: No Limitations - History of Present Illness INITIAL COMMENTS - FREE TEXT/NARRATIVE: 26 year old female presents to the ED via [facility] due to substernal chest wall pain and generalized abdominal pain. She had gallbladder surgery this morning. She was prescribed hydrocodone for pain. She says the chest pain started after she took the hydrocodone. The pain is worse with inspiration. She has no lower extremity symptoms of swelling, pain, or redness. The surgery was a lap choly here with a locum surgeon. She reports poor appetite and nausea, no vomiting. She was able to drink some apple juice but otherwise no oral intake. She denies fever, cough, chills, sweats, diarrhea. 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 Pain Score (Numeric/FACES): 8 - Related Data Allergies Allergy/AdvReac Type Severity Reaction Status Date / Time No Known Allergies Allergy Verified 06/07/17 18:06 Home Meds: Home Meds Hydrocodone/Acetaminophen [[place] 5-325] 1 tab PO Q4H PRN 06/07/17 [History] Pantoprazole Sodium [Protonix] 40 mg PO DAILY 06/07/17 [History] Past Medical History - Past Health History Medical/Surgical History: Denies Medical/Surgical History HEENT History: Reports: Impaired Vision Other HEENT History: Wears glasses Respiratory History: Reports: Asthma Gastrointestinal History: Reports: GERD, Hiatal Hernia Other Gastrointestinal History: Dyspepsia 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: Musculoskeletal History: Reports: Back Pain, Chronic, Other (See Below) Other Musculoskeletal History: "slipped disk" Neurological History: Reports: Concussion Psychiatric History: Reports: Depression, PTSD - Past Surgical History HEENT Surgical History: Reports: Oral Surgery ([place] teeth extraction) Social & Family History - Family History Family Medical History: Noncontributory - Tobacco Use Smoking Status *Q: Never Smoker Second Hand Smoke Exposure: Yes - Caffeine Use Caffeine Use: Reports: Energy Drinks - Recreational Drug Use Recreational Drug Use: Yes Drug Use in Last 12 Months: No Recreational Drug Type: Reports: Cocaine, Heroin, Methamphetamine Recreational Drug Last Use: quit age 16 - Living Situation & Occupation Living situation: Reports: , with Spouse Occupation: Employed ([employer]) ED ROS GENERAL - Review of Systems Review Of Systems: See Below Constitutional: Reports: No Symptoms. Denies: Fever, Chills, Malaise Respiratory: Reports: Pleuritic Chest Pain. Denies: Shortness of Breath, Cough , Sputum, Hemoptysis Cardiovascular: Reports: Chest Pain. Denies: Dyspnea on Exertion, Edema, Lightheadedness, Syncope GI/Abdominal: Reports: Abdominal Pain, Decreased Appetite, Nausea. Denies: Constipation, Diarrhea, Vomiting Skin: Reports: Wound (surgical incisions ) ED EXAM, GENERAL - Physical Exam Exam: See Below Exam Limited By: No Limitations General Appearance: Alert, No Apparent Distress, Anxious Respiratory/Chest: No Respiratory Distress, Lungs Clear, Normal Breath Sounds, No Accessory Muscle Use, Other (chest pain is reproducible with palpation of the anterior chest wall. ) Cardiovascular: Normal Peripheral Pulses, No Murmur, Tachycardia (with movement , heart rate increases to 110-120 with movement. ) GI/Abdominal: Normal Bowel Sounds, Distended (mild ), Guarding, Tender ( epigastric and RUQ ). No: Rigid, Rebound Extremities: Normal Inspection, Normal Range of Motion, No Pedal Edema. No: Anibal's Sign, Leg Pain Neurological: Alert, Oriented Skin Exam: Warm, Dry, Other (surgical incisions are well approximated with minimal drainage. No surrounding erythema or signs of infection.) Course - Vital Signs Last Recorded V/S: Last Vital Signs Temp 98.5 F 06/07/17 18:00 Pulse 77 06/07/17 18:00 Resp 18 06/07/17 18:00 BP 127/78 06/07/17 18:00 Pulse Ox 100 06/07/17 18:00 - Orders/Labs/Meds Orders: Active Orders 24 hr Category Date Time Status Cardiac Monitoring [RC] . DIRECTED Care 06/07/17 18:03 Active EKG Documentation Completion [RC] ASDIRECTED Care 06/07/17 18:05 Active Peripheral IV Care [RC] . DIRECTED Care 06/07/17 18:05 Active CXR [Chest 1V Frontal] [CR] Stat Exams 06/07/17 18:03 Taken Sodium Chloride 0.9% [Normal Saline] 100 ml Med 06/07/17 19:45 Active IV ASDIRECTED Sodium Chloride 0.9% [Saline Flush] Med 06/07/17 18:04 Active 10 ml FLUSH ASDIRECTED PRN Peripheral IV Insertion Adult [OM.PC] Stat Oth 06/07/17 18:04 Ordered EKG 12 Lead [EK] Stat Ther 06/07/17 18:03 Ordered Medication Orders Sodium Chloride (Normal Saline) 100 mls @ 60 mls/hr IV ASDIRECTED YESIKA Last Admin: 06/07/17 20:22 Dose: 60 mls/hr Sodium Chloride (Saline Flush) 10 ml FLUSH ASDIRECTED PRN PRN Reason: Keep Vein Open Last Admin: 06/07/17 18:24 Dose: 10 ml Labs: Laboratory Tests 06/07/17 06/07/17 06/07/17 Range/Units 18:30 18:30 18:30 WBC 8.13 (3.98-10.04) K/mm3 RBC 4.77 (3.98-5.22) M/mm3 Hgb 13.8 (11.2-15.7) gm/L Hct 41.0 (34.1-44.9) % MCV 86.0 (79.4-94.8) fl MCH 28.9 (25.6-32.2) pg MCHC 33.7 (32.2-35.5) g/dl RDW Std Deviation 40.4 (36.4-46.3) fL Plt Count 176 L (182-369) K/mm3 MPV 12.1 (9.4-12.3) fl Neutrophils % (Manual) 88 H (40-60) % Band Neutrophils % 0 (0-10) % Lymphocytes % (Manual) 11 L (20-40) % Atypical Lymphs % 0 % Monocytes % (Manual) 1 L (2-10) % Eosinophils % (Manual) 0 L (0.7-5.8) % Basophils % (Manual) 0 L (0.1-1.2) Platelet Estimate Adequate RBC Morph Comment Normal D-Dimer, Quantitative 1.36 H (0.19-0.59) mg/L Sodium 144 (136-145) mEq/L Potassium 4.1 (3.5-5.1) mEq/L Chloride 106 (98-107) mEq/L Carbon Dioxide 25 (21-32) mEq/L Anion Gap 17.1 H (5-15) BUN 8 (7-18) mg/dL Creatinine 0.9 (0.55-1.02) mg/dL Est Cr Clr Drug Dosing 85.98 mL/min Estimated GFR (MDRD) > 60 (>60) mL/min BUN/Creatinine Ratio 8.9 L (14-18) Glucose 151 H (74-106) mg/dL Calcium 10.1 (8.5-10.1) mg/dL Total Bilirubin 0.4 (0.2-1.0) mg/dL AST 71 H (15-37) U/L ALT 100 H (14-59) U/L Alkaline Phosphatase 81 (46-116) U/L Troponin I < 0.017 (0.00-0.056) ng/mL Total Protein 8.1 (6.4-8.2) g/dl Albumin 4.3 (3.4-5.0) g/dl Globulin 3.8 gm/dL Albumin/Globulin Ratio 1.1 (1-2) Lipase 83 (73-393) U/L Meds: Medications Generic Name Dose Route Start Last Admin Trade Name Freq PRN Reason Stop Dose Admin Sodium Chloride 100 mls @ 60 mls/hr 06/07/17 19:45 06/07/17 20:22 Normal Saline IV 60 mls/hr ASDIRECTED YESIKA Administration Sodium Chloride 10 ml 06/07/17 18:04 06/07/17 18:24 Saline Flush FLUSH 10 ml ASDIRECTED PRN Administration Keep Vein Open Discontinued Medications Generic Name Dose Route Start Last Admin Trade Name Freq PRN Reason Stop Dose Admin Hydromorphone HCl 0.5 mg 06/07/17 18:04 06/07/17 18:24 Dilaudid IVPUSH 06/07/17 18:05 0.5 mg ONETIME ONE Administration Lactated Ringer's 1,000 mls @ 999 mls/hr 06/07/17 18:04 06/07/17 18:25 Ringers, Lactated IV 06/07/17 19:04 999 mls/hr .BOLUS ONE Administration Iopamidol 100 ml 06/07/17 19:45 06/07/17 20:22 Isovue-370 (76%) IVPUSH 06/07/17 19:46 58 ml ONETIME ONE Administration Ketorolac Tromethamine 30 mg 06/07/17 18:04 06/07/17 18:24 Toradol IVPUSH 06/07/17 18:05 30 mg ONETIME ONE Administration Ondansetron HCl 4 mg 06/07/17 18:04 06/07/17 18:24 Zofran IVPUSH 06/07/17 18:05 4 mg ONETIME ONE Administration Sodium Chloride 10 ml 06/07/17 19:45 06/07/17 20:22 Saline Flush FLUSH 06/07/17 19:46 10 ml ONETIME ONE Administration - Re-Assessments/Exams Free Text/Narrative Re-Assessment/Exam: 1 view portable chest x-ray reveals normal heart size and normal mediastinum. No pulmonary infiltrates or effusions appreciated. There is air under her diaphragm which is to be expected after lap choly. 06/07/17 19:25 EKG reveals SR 88bpm. No acute ischemic changes. CBC reveals normal WBC and H&H. CMP is normal except for anion gap of 17.1. Liver enzymes are elevated, AST 71 and ALT 100, likely due to lap choly. Lipase is WNL. Troponin WNL. D-dimer came back elevated. CT pulmonary angio ordered. 06/07/17 20:[address] Falk, findings: Free air is identified within the abdomen. Pulmonary arteries are well-opacified. No filling defects are seen to indicate pulmonary embolism. Mediastinum and hilar regions show no adenopathy or mass. Lungs are clear. No pleural effusions are seen. No pneumothorax is seen. Surgical clips are seen from prior cholecystectomy. Bone window settings were reviewed which appear within normal limits. Impression: 1. No findings of pulmonary embolism. 2. Free air within the abdomen. 3. No additional abnormality is identified on CT study of the chest. Departure - Departure Time of Disposition: 20:54 Disposition: Home, Self-Care 01 Condition: Good Clinical Impression: Post-operative pain - Discharge Information Referrals: PCP,None [Primary Care Provider] - Forms: ED Department Discharge Additional Instructions: Continue the hydrocodone as prescribed for pain Drink plenty of clear fluids (80 oz per day) [place] diet Call your surgeon in the morning to update them on your pain Return to ER with new or worsening symptoms No driving today due to sedating medications given in the ER - My Orders Last 24 Hours: My Active Orders 06/07/17 18:03 Cardiac Monitoring [RC] . DIRECTED CXR [Chest 1V Frontal] [CR] Stat EKG 12 Lead [EK] Stat 06/07/17 18:04 Sodium Chloride 0.9% [Saline Flush] 10 ml FLUSH ASDIRECTED PRN Peripheral IV Insertion Adult [OM.PC] Stat 06/07/17 18:05 EKG Documentation Completion [RC] ASDIRECTED Peripheral IV Care [RC] . DIRECTED 06/07/17 19:45 Sodium Chloride 0.9% [Normal Saline] 100 ml IV ASDIRECTED - Assessment/Plan Last 24 Hours: My Active Orders 06/07/17 18:03 Cardiac Monitoring [RC] . DIRECTED CXR [Chest 1V Frontal] [CR] Stat EKG 12 Lead [EK] Stat 06/07/17 18:04 Sodium Chloride 0.9% [Saline Flush] 10 ml FLUSH ASDIRECTED PRN Peripheral IV Insertion Adult [OM.PC] Stat 06/07/17 18:05 EKG Documentation Completion [RC] ASDIRECTED Peripheral IV Care [RC] . DIRECTED 06/07/17 19:45 Sodium Chloride 0.9% [Normal Saline] 100 ml IV ASDIRECTED
[2017-06-07] MEDS ORDERED: Iopamidol 755 Mg/ML 100 ML Bottle IVPUSH ONE (19:45)
[2017-06-07] MEDS ORDERED: Sodium Chloride 0.9% 10 ML Syringe FLUSH ONE (19:45)
[2017-06-07] MEDS ORDERED: Sodium Chloride 0.9% 100 ML IV SCH (19:45)
--- NOTE | 2017-06-07 20:57 | CT ---
CT chest Technique: Multiple axial sections were obtained from above the lung apices inferiorly through the lung bases. Intravenous contrast was utilized. Study has been performed as a pulmonary angiogram protocol. Findings: Free air is identified within the abdomen. Pulmonary arteries are well-opacified. No filling defects are seen to indicate pulmonary embolism. Mediastinum and hilar regions show no adenopathy or mass. Lungs are clear. No pleural effusions are seen. No pneumothorax is seen. Surgical clips are seen from prior cholecystectomy. Bone window settings were reviewed which appear within normal limits. Impression: 1. No findings of pulmonary embolism. 2. Free air within the abdomen. 3. No additional abnormality is identified on CT study of the chest. Diagnostic code #2
--- NOTE | 2017-06-08 07:07 | CR ---
Chest: Portable view of the chest is obtained. Comparison: No prior chest x-ray. Free air is identified beneath the hemidiaphragm. Heart size and mediastinum are normal. Lungs are clear. Bony structures are grossly intact. Impression: 1. Free air beneath the hemidiaphragm. 2. Nothing acute is otherwise is seen on portable chest x-ray. Diagnostic code #3
== END 2017-06-07 21:03 | disposition home or self-care (01) ==
LOC: JD.ED 17:58
DX: G89.18 Other acute postprocedural pain (principal); K21.9 Gastro-esophageal reflux disease without esophagitis; Z98.890 Other specified postprocedural states; Z77.22 Contact with and (suspected) exposure to environmental tobacco smoke (acute) (chronic); Z79.899 Other long term (current) drug therapy
CPT/HCPCS: 36415; 71010; 71275; 80053; 83690; 84484; 85025; 85379; 93005; 96361; 96374; 96375; 99285; J1170; J1885; J2405; J7030; J7050; J7120; Q9967

== ENCOUNTER 2017-07-24 23:37 | Emergency (ER) | payer MEDICAID ==
[2017-07-24 23:50] VITALS: BP 129/83
[2017-07-25] MEDS ORDERED: Ondansetron 4 MG/2 ML SDV IVPUSH ONE
[2017-07-25] MEDS ORDERED: Sodium Chloride 0.9% 10 ML Syringe FLUSH PRN
[2017-07-25] MEDS ORDERED: Sodium Chloride 0.9% 1,000 ML IV SCH
[2017-07-25] MEDS ORDERED: HYDROmorphone 0.5 MG/0.5 ML Syringe IVPUSH ONE
[2017-07-25] MEDS ORDERED: Famotidine 20 MG/2 ML SDV IVPUSH ONE
--- NOTE | 2017-07-25 00:05 | EDM.PDOC ---
ED HPI GENERAL MEDICAL PROBLEM - General Chief Complaint: General Stated Complaint: POSSIBLY DEHIDRATED VOMMITING Time Seen by Provider: 07/24/17 23:53 Source of Information: Reports: Patient, RN Notes Reviewed - History of Present Illness INITIAL COMMENTS - FREE TEXT/NARRATIVE: 26-year-old lady became ill yesterday with cough congestion sore throat headache fever chills and myalgias. She was seen at one of the clinics this late afternoon, diagnosed with influenza. She took a dose of Tamiflu about 4 hours ago. She is already somewhat nauseated and after taking the Tamiflu started vomiting. She still does feel quite nauseated. He still does have all of the other symptoms that started yesterday. Her mouth does feel somewhat dry. It has been difficult for her to eat and drink today. Headache Pain Score (Numeric/FACES): 7 - Related Data Allergies Allergy/AdvReac Type Severity Reaction Status Date / Time No Known Allergies Allergy Verified 07/24/17 23:50 Home Meds: Home Meds Pantoprazole Sodium [Protonix] 40 mg PO DAILY 06/07/17 [History] Ondansetron [Zofran ODT] 4 mg PO Q8H PRN #7 tab.dis 07/25/17 [Rx] Past Medical History - Past Health History Medical/Surgical History: Denies Medical/Surgical History HEENT History: Reports: Impaired Vision Other HEENT History: Wears glasses Respiratory History: Reports: Asthma Gastrointestinal History: Reports: GERD, Hiatal Hernia Other Gastrointestinal History: Dyspepsia 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: absent 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 Musculoskeletal History: Reports: Back Pain, Chronic, Other (See Below) Other Musculoskeletal History: "slipped disk" Neurological History: Reports: Concussion Psychiatric History: Reports: Depression, PTSD - Past Surgical History HEENT Surgical History: Reports: Oral Surgery Social & Family History - Family History Family Medical History: Noncontributory - Tobacco Use Smoking Status *Q: Never Smoker Second Hand Smoke Exposure: Yes - Caffeine Use Caffeine Use: Reports: Coffee - Recreational Drug Use Recreational Drug Use: No Drug Use in Last 12 Months: No Recreational Drug Type: Reports: Cocaine, Heroin, Methamphetamine Recreational Drug Last Use: quit age 16 - Living Situation & Occupation Living situation: Reports: , with Spouse Occupation: Employed ([employer]) ED ROS GENERAL - Review of Systems Review Of Systems: See Below Constitutional: Reports: Fever, Chills. Denies: Diaphoresis HEENT: Reports: Rhinitis (Nasal and sinus congestion), Sinus Problem, Throat Pain Respiratory: Reports: Cough. Denies: Shortness of Breath, Pleuritic Chest Pain Cardiovascular: Reports: Chest Pain (With coughing) GI/Abdominal: Reports: Abdominal Pain (There is some upper abdominal discomfort) , Nausea, Vomiting Musculoskeletal: Reports: Other (Generalized achiness) Skin: Reports: No Symptoms Neurological: Reports: Headache ED EXAM, GENERAL - Physical Exam Exam: See Below General Appearance: Alert, Moderate Distress Eye Exam: Bilateral Eye: PERRL Nose: Nasal Drainage Throat/Mouth: Other Head: No: Facial Swelling (On mucosa somewhat dry) Neck: Supple, Full Range of Motion Respiratory/Chest: No Respiratory Distress, Lungs Clear, Normal Breath Sounds Cardiovascular: Tachycardia (Heart rate 136 on arrival) GI/Abdominal: Soft, Non-Tender Extremities: Normal Inspection, Normal Range of Motion Neurological: Alert, Oriented, No Motor/Sensory Deficits Skin Exam: Warm, Dry, Normal Color Course - Vital Signs Last Recorded V/S: Last Vital Signs Temp 100.6 F 07/24/17 23:48 Pulse 136 H 07/24/17 23:48 Resp 18 07/24/17 23:48 BP 129/83 07/24/17 23:48 Pulse Ox 98 07/24/17 23:48 - Orders/Labs/Meds Orders: Active Orders 24 hr Category Date Time Status Peripheral IV Care [RC] . DIRECTED Care 07/25/17 00:00 Active Sodium Chloride 0.9% [Normal Saline] 1,000 ml Med 07/25/17 00:00 Active IV ONETIME Sodium Chloride 0.9% [Saline Flush] Med 07/25/17 00:00 Active 10 ml FLUSH ASDIRECTED PRN Peripheral IV Insertion Adult [OM.PC] Stat Oth 07/25/17 00:00 Ordered Medication Orders Sodium Chloride (Normal Saline) 1,000 mls @ 999 mls/hr IV ONETIME [facility] Last Admin: 07/25/17 00:18 Dose: 999 mls/hr Sodium Chloride (Saline Flush) 10 ml FLUSH ASDIRECTED PRN PRN Reason: Keep Vein Open Last Admin: 07/25/17 00:20 Dose: 10 ml Meds: Medications Generic Name Dose Route Start Last Admin Trade Name Freq PRN Reason Stop Dose Admin Sodium Chloride 1,000 mls @ 999 mls/hr 07/25/17 00:00 07/25/17 00:18 Normal Saline IV 999 mls/hr ONETIME YESIKA Administration Sodium Chloride 10 ml 07/25/17 00:00 07/25/17 00:20 Saline Flush FLUSH 10 ml ASDIRECTED PRN Administration Keep Vein Open Discontinued Medications Generic Name Dose Route Start Last Admin Trade Name Freq PRN Reason Stop Dose Admin Famotidine 20 mg 07/25/17 00:00 07/25/17 00:20 Pepcid IVPUSH 07/25/17 00:01 20 mg ONETIME ONE Administration Hydromorphone HCl 0.5 mg 07/25/17 00:00 07/25/17 00:22 Dilaudid IVPUSH 07/25/17 00:01 0.5 mg ONETIME ONE Administration Ondansetron HCl 4 mg 07/25/17 00:00 07/25/17 00:18 Zofran IVPUSH 07/25/17 00:01 4 mg ONETIME ONE Administration Departure - Departure Time of Disposition: Disposition: Home, Self-Care 01 Condition: Fair Clinical Impression: Influenza, Dehydration Vomiting Qualifiers: Vomiting type: unspecified Vomiting Intractability: non-intractable Nausea presence: with nausea Qualified Code(s): R11.2 - Nausea with vomiting, unspecified - Discharge Information Prescriptions: Ondansetron [Zofran ODT] 4 mg PO Q8H PRN #7 tab.dis PRN Reason: Nausea/Vomiting Referrals: PCP,None [Primary Care Provider] - Forms: ED Department Discharge Additional Instructions: Clear liquids this morning, than very careful bland diet as tolerated, vaporizer or steam as needed, you can alternate Tylenol and ibuprofen as needed for discomfort. Zofran if needed for any further nausea or vomiting. - My Orders Last 24 Hours: My Active Orders 07/25/17 00:00 Peripheral IV Care [RC] . DIRECTED Sodium Chloride 0.9% [Normal Saline] 1,000 ml IV ONETIME Sodium Chloride 0.9% [Saline Flush] 10 ml FLUSH ASDIRECTED PRN Peripheral IV Insertion Adult [OM.PC] Stat - Assessment/Plan Last 24 Hours: My Active Orders 07/25/17 00:00 Peripheral IV Care [RC] . DIRECTED Sodium Chloride 0.9% [Normal Saline] 1,000 ml IV ONETIME Sodium Chloride 0.9% [Saline Flush] 10 ml FLUSH ASDIRECTED PRN Peripheral IV Insertion Adult [OM.PC] Stat
== END 2017-07-25 01:40 | disposition home or self-care (01) ==
LOC: JD.ED 23:37
DX: J11.1 Influenza due to unidentified influenza virus with other respiratory manifestations (principal); E86.0 Dehydration; R11.2 Nausea with vomiting, unspecified
CPT/HCPCS: 96374; 96375; 99283; J1170; J2405; J7040; J7050; 99284

== ENCOUNTER 2017-09-04 19:14 | Emergency (ER) | payer SELFPAY ==
[2017-09-04 19:23] VITALS: BP 131/85
[2017-09-04] MEDS ORDERED: Sodium Chloride 0.9% 10 ML Syringe FLUSH PRN (19:45)
[2017-09-04] MEDS ORDERED: Ondansetron 4 MG/2 ML SDV IVPUSH ONE (19:47)
[2017-09-04] MEDS ORDERED: Sodium Chloride 0.9% 500 ML IV ONE (19:47)
--- NOTE | 2017-09-04 19:52 | EDM.PDOC ---
ED HPI GENERAL MEDICAL PROBLEM - General Chief Complaint: Abdominal Pain Stated Complaint: LOWER RIGHT SIDE ABDOMINAL PAIN Time Seen by Provider: 09/04/17 19:38 Source of Information: Reports: Patient, RN Notes Reviewed - History of Present Illness INITIAL COMMENTS - FREE TEXT/NARRATIVE: 26 year old female with onset of RLQ pain 3 days ago, still present, nausea, no vomiting, no fever or chills. Decreased appetite. No diarrhea. Mild Voiding frequency. Just started her Menstrual period "about 5 days late". 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 OB/BYN History: absent menses Musculoskeletal History: Reports: Back Pain, Chronic, Other (See Below) Other Musculoskeletal History: "slipped disk" Neurological History: Reports: Concussion Psychiatric History: Reports: Depression, PTSD - Past Surgical History HEENT Surgical History: Reports: Oral Surgery GI Surgical History: Reports: Cholecystectomy Social & Family History - Family History Family Medical History: Noncontributory - Tobacco Use Smoking Status *Q: Never Smoker Second Hand Smoke Exposure: No - Caffeine Use Caffeine Use: Reports: Soda - Recreational Drug Use Recreational Drug Use: No Drug Use in Last 12 Months: No Recreational Drug Type: Reports: Cocaine, Heroin, Methamphetamine Recreational Drug Last Use: quit age 16 - Living Situation & Occupation Living situation: Reports: , with Spouse Occupation: Employed ([employer]) ED ROS GENERAL - Review of Systems Review Of Systems: See Below Constitutional: Reports: Other. Denies: Fever, Chills, Diaphoresis HEENT: Reports: No Symptoms Respiratory: Denies: Shortness of Breath, Pleuritic Chest Pain Cardiovascular: Denies: Chest Pain GI/Abdominal: Reports: Abdominal Pain, Decreased Appetite, Nausea. Denies: Constipation, Diarrhea, Hematochezia, Melena, Vomiting : Reports: Frequency (mild) Musculoskeletal: Denies: Back Pain, Leg Pain Skin: Reports: No Symptoms Neurological: Reports: No Symptoms ED EXAM, GI/ABD - Physical Exam Exam: See Below General Appearance: Alert, No Apparent Distress Throat/Mouth: Normal Inspection, Normal Oropharynx Head: No: Facial Swelling Neck: Supple, Full Range of Motion Respiratory/Chest: No Respiratory Distress, Lungs Clear, Normal Breath Sounds Cardiovascular: Regular Rate, Rhythm GI/Abdominal Exam: Soft, Rebound (very mild), Tender (RLQ. Abd otherwise nontender). No: Guarding Back Exam: No: CVA Tenderness (L), CVA Tenderness (R) Extremities: Normal Inspection, Normal Range of Motion Neurological: Alert, Oriented, No Motor/Sensory Deficits Course - Vital Signs Last Recorded V/S: Last Vital Signs Temp 98 F 09/04/17 19:20 Pulse 84 09/04/17 19:20 Resp 18 09/04/17 19:20 BP 131/85 09/04/17 19:20 Pulse Ox 100 09/04/17 19:20 - Orders/Labs/Meds Orders: Active Orders 24 hr Category Date Time Status Peripheral IV Care [RC] . DIRECTED Care 09/04/17 19:46 Active Sodium Chloride 0.9% [Saline Flush] Med 09/04/17 19:45 Active 10 ml FLUSH ASDIRECTED PRN Peripheral IV Insertion Adult [OM.PC] Stat Oth 09/04/17 19:46 Ordered Medication Orders Sodium Chloride (Saline Flush) 10 ml FLUSH ASDIRECTED PRN PRN Reason: Keep Vein Open Last Admin: 09/04/17 20:06 Dose: 10 ml Labs: Laboratory Tests 09/04/17 09/04/17 09/04/17 Range/Units 19:05 19:05 20:15 WBC (3.98-10.04) K/mm3 RBC (3.98-5.22) M/mm3 Hgb (11.2-15.7) gm/L Hct (34.1-44.9) % MCV (79.4-94.8) fl MCH (25.6-32.2) pg MCHC (32.2-35.5) g/dl RDW Std Deviation (36.4-46.3) fL Plt Count (182-369) K/mm3 MPV (9.4-12.3) fl Neut % (Auto) (34.0-71.1) % Lymph % (Auto) (19.3-51.7) % Iron % (Auto) (4.7-12.5) % Eos % (Auto) (0.7-5.8) Baso % (Auto) (0.1-1.2) % Neut # (Auto) (1.56-6.13) K/mm3 Lymph # (Auto) (1.18-3.74) K/mm3 Iron # (Auto) (0.24-0.36) K/mm3 Eos # (Auto) (0.04-0.36) K/mm3 Baso # (Auto) (0.01-0.08) K/mm3 Sodium (136-145) mEq/L Potassium (3.5-5.1) mEq/L Chloride (98-107) mEq/L Carbon Dioxide (21-32) mEq/L Anion Gap (5-15) BUN (7-18) mg/dL Creatinine (0.55-1.02) mg/dL Est Cr Clr Drug Dosing mL/min Estimated GFR (MDRD) (>60) mL/min BUN/Creatinine Ratio (14-18) Glucose (74-106) mg/dL Calcium (8.5-10.1) mg/dL Total Bilirubin (0.2-1.0) mg/dL AST (15-37) U/L ALT (14-59) U/L Alkaline Phosphatase (46-116) U/L C-Reactive Protein < 0.2 (<1.0) mg/dL Total Protein (6.4-8.2) g/dl Albumin (3.4-5.0) g/dl Globulin gm/dL Albumin/Globulin Ratio (1-2) Urine Color Yellow (Yellow) Urine Appearance Clear (Clear) Urine pH 6.5 (5.0-8.0) Ur Specific [place] 1.015 (1.005-1.030) Urine Protein Negative (Negative) Urine Glucose (UA) Negative (Negative) Urine Ketones Negative (Negative) Urine Occult Blood 3+ H (Negative) Urine Nitrite Negative (Negative) Urine Bilirubin Negative (Negative) Urine Urobilinogen 0.2 (0.2-1.0) Ur Leukocyte Esterase Trace H (Negative) Urine RBC 0-5 (0-5) /hpf Urine WBC 0-5 (0-5) /hpf Ur Epithelial Cells 5-10 H (0-5) /hpf Urine Bacteria Few (FEW) /hpf Urine Mucus Not seen (FEW) /hpf Urine HCG, Qual Negative (NEGATIVE) 09/04/17 09/04/17 Range/Units 20:15 20:15 WBC 6.27 (3.98-10.04) K/mm3 RBC 4.72 (3.98-5.22) M/mm3 Hgb 13.8 (11.2-15.7) gm/L Hct 40.4 (34.1-44.9) % MCV 85.6 (79.4-94.8) fl MCH 29.2 (25.6-32.2) pg MCHC 34.2 (32.2-35.5) g/dl RDW Std Deviation 40.3 (36.4-46.3) fL Plt Count 187 (182-369) K/mm3 MPV 11.5 (9.4-12.3) fl Neut % (Auto) 62.8 (34.0-71.1) % Lymph % (Auto) 28.5 (19.3-51.7) % Iron % (Auto) 5.9 (4.7-12.5) % Eos % (Auto) 2.4 (0.7-5.8) Baso % (Auto) 0.2 (0.1-1.2) % Neut # (Auto) 3.94 (1.56-6.13) K/mm3 Lymph # (Auto) 1.79 (1.18-3.74) K/mm3 Iron # (Auto) 0.37 H (0.24-0.36) K/mm3 Eos # (Auto) 0.15 (0.04-0.36) K/mm3 Baso # (Auto) 0.01 (0.01-0.08) K/mm3 Sodium 141 (136-145) mEq/L Potassium 4.0 (3.5-5.1) mEq/L Chloride 106 (98-107) mEq/L Carbon Dioxide 26 (21-32) mEq/L Anion Gap 13.0 (5-15) BUN 7 (7-18) mg/dL Creatinine 0.8 (0.55-1.02) mg/dL Est Cr Clr Drug Dosing 96.73 mL/min Estimated GFR (MDRD) > 60 (>60) mL/min BUN/Creatinine Ratio 8.8 L (14-18) Glucose 91 (74-106) mg/dL Calcium 8.8 (8.5-10.1) mg/dL Total Bilirubin 0.4 (0.2-1.0) mg/dL AST 13 L (15-37) U/L ALT 16 (14-59) U/L Alkaline Phosphatase 68 (46-116) U/L C-Reactive Protein (<1.0) mg/dL Total Protein 7.1 (6.4-8.2) g/dl Albumin 3.6 (3.4-5.0) g/dl Globulin 3.5 gm/dL Albumin/Globulin Ratio 1.0 (1-2) Urine Color (Yellow) Urine Appearance (Clear) Urine pH (5.0-8.0) Ur Specific [place] (1.005-1.030) Urine Protein (Negative) Urine Glucose (UA) (Negative) Urine Ketones (Negative) Urine Occult Blood (Negative) Urine Nitrite (Negative) Urine Bilirubin (Negative) Urine Urobilinogen (0.2-1.0) Ur Leukocyte Esterase (Negative) Urine RBC (0-5) /hpf Urine WBC (0-5) /hpf Ur Epithelial Cells (0-5) /hpf Urine Bacteria (FEW) /hpf Urine Mucus (FEW) /hpf Urine HCG, Qual (NEGATIVE) Meds: Medications Generic Name Dose Route Start Last Admin Trade Name Freq PRN Reason Stop Dose Admin Sodium Chloride 10 ml 09/04/17 19:45 09/04/17 20:06 Saline Flush FLUSH 10 ml ASDIRECTED PRN Administration Keep Vein Open Discontinued Medications Generic Name Dose Route Start Last Admin Trade Name Freq PRN Reason Stop Dose Admin Sodium Chloride 500 mls @ 999 mls/hr 09/04/17 19:47 09/04/17 20:06 Normal Saline IV 09/04/17 20:17 500 mls/hr .BOLUS ONE Administration Ondansetron HCl 4 mg 09/04/17 19:47 09/04/17 20:02 Zofran IVPUSH 09/04/17 19:48 4 mg ONETIME ONE Administration - Re-Assessments/Exams Free Text/Narrative Re-Assessment/Exam: 09/04/17 21:11 White blood count, C-reactive protein normal. Patient is resting comfortably. Urine test negative. We'll discharge home on clear liquids at this time. Departure - Departure Time of Disposition: 21:12 Disposition: Home, Self-Care 01 Condition: Fair Clinical Impression: Abdominal pain Qualifiers: Abdominal location: right lower quadrant Qualified Code(s): R10.31 - Right lower quadrant pain - Discharge Information Referrals: PCP,None [Primary Care Provider] - Forms: ED Department Discharge Additional Instructions: Clear liquids until tomorrow afternoon, then very careful bland diet as tolerated. I do recommend that you also start taken probiotic, available OTC. Take that twice daily for about 1 week. Your symptoms should gradually get better over the next 1-2 days. Follow-up clinic if not back to normal within 2- 3 days as expected. Return to ED if symptoms worsening in any way. - My Orders Last 24 Hours: My Active Orders 09/04/17 19:45 Sodium Chloride 0.9% [Saline Flush] 10 ml FLUSH ASDIRECTED PRN 09/04/17 19:46 Peripheral IV Care [RC] . DIRECTED Peripheral IV Insertion Adult [OM.PC] Stat - Assessment/Plan Last 24 Hours: My Active Orders 09/04/17 19:45 Sodium Chloride 0.9% [Saline Flush] 10 ml FLUSH ASDIRECTED PRN 09/04/17 19:46 Peripheral IV Care [RC] . DIRECTED Peripheral IV Insertion Adult [OM.PC] Stat
== END 2017-09-04 21:23 | disposition home or self-care (01) ==
LOC: JD.ED 19:14
DX: R10.31 Right lower quadrant pain (principal)
CPT/HCPCS: 36415; 80053; 81001; 81025; 85025; 86140; 96361; 96374; 99284; J2405; J7040; J7050